=== PATIENT | female | born 1985 | race Caucasian/White ===

== ENCOUNTER 2020-01-08 19:32 | Emergency (ER) | payer OTHER ==
[~2020-01-08] VITALS: Ht 170.2 cm; Wt 111.6 kg
[2020-01-08] MEDS ORDERED: BLISOVI 24 FE1 EACH PO (19:48)
[2020-01-08] MEDS ORDERED: ERRIN0.35 MG PO (19:49)
[2020-01-08 20:25] LABS: ABSOLUTE NEUTROPHILS 4.9 thou/uL (1.4-8.2); BASOPHILS 0.5 % (0.0-2.0); EOSINOPHILS 0.4 % (0.0-3.0); HEMATOCRIT 43.1 % (37.0-47.0); HEMOGLOBIN 14.4 gm/dL (12.0-15.0); LYMPHOCYTES 36.9 % (24.0-44.0); MCH 30.9 pg (26.0-34.0); MCHC 33.4 g/dL (28.0-37.0); MCV 92.5 fL (80.0-100.0); PLATELET COUNT 238 thou/uL (150-400); POLYS 56.2 % (36.0-66.0); RBC 4.66 mil/uL (4.20-5.00); RDW 13.6 % (10.5-14.5); WBC 8.8 thou/uL (4.0-11.0)
[2020-01-08 20:31] LABS: ANION GAP 9 mmol/L (7-16); BUN 19 mg/dL (7-18); CALCIUM 8.8 mg/dL (8.5-10.1); CHLORIDE 103 mmol/L (98-107); CO2 23 mmol/L (21-32); CREATININE 0.9 mg/dL (0.6-1.0); GLUCOSE 81 mg/dL (74-106); POTASSIUM 4.8 mmol/L (3.5-5.1); SODIUM 135 mmol/L (136-145)
[2020-01-08 20:42] LABS: SGOT 24 U/L (15-37); SGPT 35 U/L (30-65); TOTAL BILIRUBIN 0.4 mg/dL (0.2-1.0); TOTAL PROTEIN 8.5 g/dL (6.4-8.2); TROPONIN-I <0.06 ng/mL (<0.06)
[2020-01-08 22:56] VITALS: BP 128/87
--- NOTE | 2020-01-09 08:39 | EKG ---
[facility] [place] [address] ELECTROCARDIOGRAM REPORT Name: SUSU FUNES Room #: [facility]P [facility] [id number] Admission: 01/08/20 Attend Phys: Discharge: 01/08/20 Date of : 83 Report #: [id number] THIS REPORT FOR: cc: NEGIN - Carol family physician/PCP NEGIN - No family physician/PCP Ward Winston MD [facility] THIS REPORT FOR: //name// [facility] ED Test Date: 2020-01-08 Test Time: 19:37:50 Pat Name: SUSU FUNES Department: Room: Gender: F [employer]: [facility] : 1985 Requested By: Carolee Metcalf Order Number: [id number] MD: Ward Winston Measurements Intervals [place] Rate: 115 P: 38 KS: 108 QRS: 17 QRSD: 80 T: 4 QT: 324 QTc: 448 Interpretive Statements Sinus tachycardia Nonspecific ST segment abnormality No previous ECG available for comparison Electronically Signed On 01-09-2020 8:37:12 CDT by Ward Winston [email or web address] <ELECTRONICALLY SIGNED> By: Ward Winston MD, [facility] 01/09/20 0837 36 36 Ward Winston MD, [facility] /EPI
== END 2020-01-08 22:57 | disposition home or self-care (01) ==
LOC: ER 19:32
PROVIDERS: Student in an Organized Health Care Education/Training Program
DX: F41.0 Panic disorder [episodic paroxysmal anxiety] (principal); R42 Dizziness and giddiness; I10 Essential (primary) hypertension; Z79.899 Other long term (current) drug therapy